=== PATIENT | male | born 1930 | race Caucasian/White ===

== ENCOUNTER → 2017-04-22 | Outpatient (CLI) | payer MEDICARE ==
[~2017-04-22] MED LIST: COREG DPS12.5 MG PO; HYDROCODONE 5MG/5 MG PO; LASIX DPS80 MG PO; NORVASC5 MG PO; ROCALTROL DP0.25 MCG PO; SYNTHROID DP0.025 MG PO; [UNRECOGNIZED DRUG - OTHER] PO
== END | disposition home or self-care (01) ==
LOC: EDT 13:00
DX: E11.9 Type 2 diabetes mellitus without complications (principal); Z79.4 Long term (current) use of insulin; Z71.3 Dietary counseling and surveillance

== ENCOUNTER 2017-04-23 20:15 | Emergency (ER) | payer MEDICARE ==
--- NOTE | 2017-04-27 19:04 | ER ---
ADMIT: 04/23/2017 RM/LOC: ER [facility] MR#: [id number] [address] [address] YOSVANY REYNOSO [address] [place] [address] Emergency Room Report SEX: M AGE: 86 : 1930 DATE: 04/23/2017 HISTORY OF PRESENT ILLNESS: The patient is an 86-year-old male with a past medical history of hypertension, diabetes, seizure, chronic kidney disease, who came to the ER with chief complaint of problem with the right arm. The patient states about 20 minutes ago, he noticed the right arm is out of balance and he cannot do the precise movements he used to do with the right arm. The patient denies similar symptoms in the past. The patient denies any trauma or any headaches or any visual changes or any problem with the speech. PHYSICAL EXAMINATION: GENERAL: The patient was in no pain or distress, sitting in bed. VITAL SIGNS: Blood pressure was 133 over 80s, the patient is afebrile. HEAD and NECK: Noncontributory and normal, and no signs of trauma. CHEST: Clear bilaterally. HEART: Normal heart sounds, S1-S2 without any gallops. ABDOMEN: Soft. EXTREMITIES: There were no signs of trauma. Motor and sensory were grossly normal. NEUROLOGICAL: Cranial nerves were normal. The patient had a slow finger-to- nose test on the right arm. NIH score was 1. EMERGENCY ROOM COURSE: CT of the head did not show any acute hemorrhage. The rest of the labs are noncontributory. Dr. Sampson was contacted, and he advised an admission of the patient for observation and further followups to rule out stroke. The patient and were informed about the suggestions, the patient strongly disagreed. I talked to the patient and multiple times. I just told them the cons and pros and also the alternatives and the patient still does not want to be in the hospital and states that even if he passes away he prefers to be in his bed. is more inclined to get the patient admitted, but the patient strongly rejected. The possibility of a stroke and possible deterioration of the condition and even were discussed with the patient, and he acknowledged he understood the risks and benefits. The patient received aspirin p.o. in the ER, and was discharged to home against medical advice to be followed up by the primary doctor as soon as possible. Jesus Burgos MD/ stefano JOB #: [id number] CC: Jesus Burgos MD, Attending Physician Charles Sampson MD, Family Physician
== END 2017-04-23 22:40 | disposition left against medical advice (07) ==
LOC: ER 20:15
DX: R41.82 Altered mental status, unspecified (principal); E11.22 Type 2 diabetes mellitus with diabetic chronic kidney disease; I12.9 Hypertensive chronic kidney disease with stage 1 through stage 4 chronic kidney disease, or unspecified chronic kidney disease; N18.9 Chronic kidney disease, unspecified; Z79.4 Long term (current) use of insulin

== ENCOUNTER 2017-05-07 08:43 | Emergency (ER) | payer MEDICARE ==
--- NOTE | 2017-05-15 18:05 | ER ---
ADMIT: 05/07/2017 RM/LOC: ER [facility] MR#: [id number] [address] [address] YOSVANY REYNOSO [address] [place] [address] Emergency Room Report SEX: M AGE: 86 : 1930 DATE: 05/07/2017 CHIEF COMPLAINT: Seizure. HISTORY OF PRESENT ILLNESS: An 86-year-old white male, who presents via EMS after he had a seizure during his dialysis session today. Per dialysis center report, he was about residential through his dialysis sessions seated in the chair when he started having a generalized tonic-clonic seizure. He does have a past history of seizures, currently untreated. reports he has had this seizure disorder for the past 2 years, most recent episode was on the 27 of April of this year. Has had multiple discussions with Dr. Sampson about treating this, continues to refuse treatment as he does not want to be on any more medications. Report today says he had 1 seizure, unsure of the exact duration. He was brought via EMS postictal. reports he has otherwise been doing well the last few days. No recent illnesses, fevers, chills, recent alcohol or drug use. He is unable to provide much history today as he continues to be confused, however, he does have some dried blood on the corner of his mouth. reports he primarily gets these seizures awakening him at night. PAST MEDICAL HISTORY: Anxiety, coronary artery disease, diabetes type 2 on insulin, hypertension, CKD, hyperlipidemia. COURSE IN EMERGENCY ROOM: Patient seen and examined. GENERAL: Afebrile, nontoxic, postictal. HEENT: Head normocephalic and atraumatic. Eyes are equal and reactive. Pharynx is nonerythematous. He does have an abrasion on the left side of his tongue. Tympanic membranes are pearly castillo bilaterally. NECK: Soft and supple. No lymphadenopathy. No tenderness to palpation of posterior cervical spine. LUNGS: Clear. HEART: Regular rate and rhythm. ABDOMEN: Soft and nontender. SKIN: Warm and dry. EXTREMITIES: Nontender. No pedal edema. NEURO: He is confused, disoriented to person, place, and time. His speech is unaffected. Cranial nerves are normal as tested. Difficult as he is slow to respond to commands. He does move all 4 extremities. Sensation is intact to light touch in the upper and lower extremities. Given his history of chronic kidney disease on dialysis, did obtain labs today. Sodium 137, potassium 3.2, BUN 18, glucose 182, creatinine 3.0, calcium 8.1 with EGFR 18. His white count is 6.9, hemoglobin 11.6, hematocrit 32.4, and platelets 177. I did have a long discussion with the patient and his family discussing the risks of untreated seizure disorders to include chronic damage to the brain, possible cervical spine injuries, or even . The patient continued to refuse treatment at this point. He will plan to follow up with Dr. Sampson next week. was at bedside, agreed with the patient's plan of care moving ADMIT: 05/07/2017 RM/LOC: ER [facility] MR#: [id number] [address] [place] [id number] [place] [address] Emergency Room Report SEX: M AGE: 86 : 1930 forward. IMPRESSION: 1. Seizure. 2. Chronic kidney disease. 3. Diabetes mellitus type 2 on insulin. DISPOSITION: The patient was discharged home. Continue home medications. Return for worsening signs. Return home and rest. Follow up with Dr. Sampson next week. He was given information on seizure precautions. Questions sought and answered to best of my ability and the patient's satisfaction. Discharged home in stable condition. YANELIS Pena / Riki Cameron MD / stefano JOB #: [id number] CC: Riki Cameron MD, Attending Physician Charles Sampson MD, Family Physician
== END 2017-05-07 10:30 | disposition home or self-care (01) ==
LOC: ER 08:43
DX: G40.909 Epilepsy, unspecified, not intractable, without status epilepticus (principal); E11.9 Type 2 diabetes mellitus without complications; I12.9 Hypertensive chronic kidney disease with stage 1 through stage 4 chronic kidney disease, or unspecified chronic kidney disease; N18.9 Chronic kidney disease, unspecified; E78.5 Hyperlipidemia, unspecified; I25.10 Atherosclerotic heart disease of native coronary artery without angina pectoris; F41.9 Anxiety disorder, unspecified; E03.9 Hypothyroidism, unspecified; I25.2 Old myocardial infarction; Z88.8 Allergy status to other drugs, medicaments and biological substances; Z79.4 Long term (current) use of insulin; Z79.82 Long term (current) use of aspirin; Z79.84 Long term (current) use of oral hypoglycemic drugs; Z79.899 Other long term (current) drug therapy